=== PATIENT | female | born 1975 | race African-American/Black ===

== ENCOUNTER 2016-11-02 19:21 | Emergency (ER) | payer MEDICAID, OTHER ==
[~2016-11-02] VITALS: Ht 180.3 cm; Wt 146.4 kg
[~2016-11-02 19:21] MED LIST: BENZ2TAB58 PO; FLUO-191 PO; HALO5TAB23 PO; QUET100T PO
[2016-11-02 20:30] LABS: BASOPHILS % (AUTO) 2.2 % (0.0-2.0); EOSINOPHILS % (AUTO) 2.6 % (1.0-6.0); HEMOGLOBIN 10.9 g/dL (12.0-16.0); LYMPHOCYTES # (AUTO) 2.9 K/uL (1.0-4.8); LYMPHOCYTES % (AUTO) 38.6 % (22.0-44.0); MEAN CORPUSCULAR HEMOGLOBIN 22.6 pg (26.0-34.0); MEAN CORPUSCULAR HGB CONC 31.2 G/dL (31.0-37.0); MEAN CORPUSCULAR VOLUME 73 fL (80-100); MONOCYTES # (AUTO) 0.5 K/uL (0.1-1.0); MONOCYTES % (AUTO) 5.9 % (2.0-9.0); NEUTROPHILS # (AUTO) 3.8 K/uL (1.8-7.7); NEUTROPHILS % (AUTO) 50.7 % (40.0-70.0); PLATELET COUNT (AUTO) 387 K/uL (150-450); RED BLOOD CELL COUNT(AUTO) 4.82 MIL/uL (4.00-5.20); RED CELL DISTRIBUTION WIDTH 16.9 % (11.5-14.5); WHITE BLOOD COUNT (AUTO) 7.6 K/uL (4.5-11.0)
[2016-11-02 20:38] LABS: ANION GAP 6 mmol/L (8-16); CALCIUM, TOTAL 8.2 mg/dL (8.8-10.5); CARBON DIOXIDE 29 mmol/L (22-29); CHLORIDE 106 mmol/L (98-107); CREATININE 0.83 mg/dL (0.60-1.30); GLOMERULAR FILTR. RATE CALC > 60 mL/min (>60); POTASSIUM 4.2 mmol/L (3.5-5.1); SODIUM SERUM 141 mmol/L (136-145); UREA NITROGEN, BLOOD 10 mg/dL (7-18)
[2016-11-02 20:44] LABS: ALANINE AMINOTRANSFERASE 20 U/L (12-78); ALBUMIN 3.2 g/dL (3.4-5.0); ASPARTATE AMINOTRANSFERASE 21 U/L (15-37); BILIRUBIN,TOTAL 0.3 mg/dL (0.1-1.0); TOTAL PROTEIN, SERUM 7.9 g/dL (6.4-8.2)
[2016-11-02 20:45] LABS: RBC MORPHOLOGY COMMENT ABNORMAL RBC MORPH
[2016-11-02 21:44] LABS: APPEARANCE,URINE CLOUDY (CLEAR); GLUCOSE, URINE (UA) NEGATIVE (NEGATIVE); KETONES,URINE NEGATIVE (NEGATIVE); LEUKOCYTE ESTERASE ,URINE SMALL (NEGATIVE); OCCULT BLOOD,URINE LARGE (NEGATIVE); PROTEIN,URINE POS 1+ (NEGATIVE)
[2016-11-02 21:50] LABS: ADD UA MICROSCOPIC YES
[2016-11-02 22:11] LABS: RBC,URINE Full Field /HPF (0-2); SQUAMOUS EPITHELIAL CELL,UR Few /LPF (None Seen)
[2016-11-02 22:29] VITALS: BP 134/75
== END 2016-11-02 22:35 | disposition home or self-care (01) ==
LOC: EMS 19:23
DX: N93.8 Other specified abnormal uterine and vaginal bleeding (principal); D25.9 Leiomyoma of uterus, unspecified; F17.210 Nicotine dependence, cigarettes, uncomplicated; Z88.6 Allergy status to analgesic agent
CPT/HCPCS: 99284; 99406

== ENCOUNTER 2019-05-17 01:36 | Emergency (ER) | payer MEDICAID, OTHER ==
[~2019-05-17] VITALS: Ht 180.3 cm; Wt 104.5 kg
[2019-05-17] MEDS ORDERED: CARI350T26 PO (02:27)
[2019-05-17 03:59] VITALS: BP 112/55
[2019-05-17] MEDS ORDERED: GABAPENTIN 100 MG CAPSULE PO ONE (04:00)
== END 2019-05-17 04:00 | disposition home or self-care (01) ==
LOC: EMS 01:38
DX: M19.071 Primary osteoarthritis, right ankle and foot (principal); M19.072 Primary osteoarthritis, left ankle and foot; Z79.899 Other long term (current) drug therapy; Z88.6 Allergy status to analgesic agent

== ENCOUNTER 2025-07-09 20:33 | Emergency (ER) | payer OTHER ==
[~2025-07-09] VITALS: Ht 182.9 cm; Wt 96.4 kg
[~2025-07-09 20:33] MED LIST changes: +CARI-493 PO; +FLUO-177 PO; -FLUO-191 PO
[2025-07-09 21:52] LABS: COVID AG,FIA SOURCE NASAL SWAB
[2025-07-09 21:55] VITALS: BP 140/95; PULSE 92; RESP 14; TEMP 97.7; O2SAT 96
[2025-07-09 22:24] LABS: CALCIUM, TOTAL 9.4 mg/dL (8.8-10.5); CREATININE 0.70 mg/dL (0.60-1.30); GLOMERULAR FILTR. RATE CALC > 60 mL/min (>60); GLUCOSE,RANDOM 75 mg/dL (70-110); SODIUM SERUM 140 mmol/L (136-145); UREA NITROGEN, BLOOD 23 mg/dL (7-18)
[2025-07-09 22:25] LABS: PLATELET COUNT (AUTO) 252 K/uL (150-450); RED BLOOD CELL COUNT(AUTO) 4.87 MIL/uL (4.00-5.20); RED CELL DISTRIBUTION WIDTH 16.4 % (11.5-14.5); WHITE BLOOD COUNT (AUTO) 3.8 K/uL (4.5-11.0)
[2025-07-09 22:44] LABS: SARS-COV2 (COVID) ANTIGEN,FIA Negative (Negative)
[2025-07-12] MEDS ORDERED: APIX5TAB PO (13:21)
[2025-07-12] MEDS ORDERED: ALBU18HF12 IH (13:21)
[2025-07-12] MEDS ORDERED: BACL10TA PO (13:21)
[2025-07-12] MEDS ORDERED: LOSA-382 PO (13:22)
[2025-07-12] MEDS ORDERED: LORA1TAB25 PO (13:22)
[2025-07-12] MEDS ORDERED: MELO-107 PO (13:22)
[2025-07-12] MEDS ORDERED: OXYB5TAB20 PO (13:22)
[2025-07-12] MEDS ORDERED: DICL100G60 TP (13:22)
[2025-07-12] MEDS ORDERED: HALO1TAB19 PO (13:22)
[2025-07-12] MEDS ORDERED: [UNRECOGNIZED DRUG - CODE] PO (13:22)
[2025-07-12] MEDS ORDERED: TOPI-257 PO (13:22)
[2025-07-12] MEDS ORDERED: QUET25TA PO (13:22)
[2025-07-12] MEDS ORDERED: LEVE250T81 PO (13:22)
[2025-07-14] MEDS ORDERED: HALO2ORA3 PO (15:40)
[2025-07-14] MEDS ORDERED: LEVE250T81 PO (15:40)
[2025-07-14] MEDS ORDERED: MELA5TAB40 PO (15:40)
[2025-07-14] MEDS ORDERED: GABA-1181 PO (15:40)
[2025-07-14] MEDS ORDERED: DULO30CA62 PO (15:40)
[2025-07-14] MEDS ORDERED: DIVA-153 PO (15:40)
== END 2025-07-10 00:25 | disposition home or self-care (01) ==
LOC: EMS 20:40
DX: R45.1 Restlessness and agitation (principal); F20.9 Schizophrenia, unspecified; F31.9 Bipolar disorder, unspecified; G89.29 Other chronic pain; F17.210 Nicotine dependence, cigarettes, uncomplicated; Z20.822 Contact with and (suspected) exposure to COVID-19; Z79.899 Other long term (current) drug therapy; Z88.6 Allergy status to analgesic agent
CPT/HCPCS: 99283; 87426; 80048; 85025; 36415; G0480

== ENCOUNTER 2025-07-19 21:36 | Emergency (ER) | payer MEDICAID, OTHER ==
[~2025-07-19] VITALS: Ht 182.9 cm; Wt 96.8 kg
[~2025-07-19 21:36] MED LIST changes: +ALBU18HF12 IH; +APIX5TAB PO; +BACL10TA PO; -BENZ2TAB58 PO; -CARI-493 PO; +DICL100G60 TP; +DIVA-153 PO; +DULO30CA62 PO; -FLUO-177 PO; +GABA-1181 PO; +HALO1TAB19 PO; +HALO2ORA3 PO; -HALO5TAB23 PO; +LEVE250T81 PO; +LORA1TAB25 PO; +LOSA-382 PO; +MELA5TAB40 PO; +MELO-107 PO; +OXYB5TAB20 PO; +QUET25TA PO; +TOPI-257 PO; +[UNRECOGNIZED DRUG - CODE] PO
[2025-07-19 21:37] VITALS: TEMP 98.4
[2025-07-19 22:37] LABS: PLATELET COUNT (AUTO) 208 K/uL (150-450); RED BLOOD CELL COUNT(AUTO) 4.66 MIL/uL (4.00-5.20); RED CELL DISTRIBUTION WIDTH 15.4 % (11.5-14.5); WHITE BLOOD COUNT (AUTO) 3.6 K/uL (4.5-11.0)
[2025-07-19 22:46] LABS: CALCIUM, TOTAL 9.0 mg/dL (8.8-10.5); CREATININE 0.56 mg/dL (0.60-1.30); GLOMERULAR FILTR. RATE CALC > 60 mL/min (>60); GLUCOSE,RANDOM 100 mg/dL (70-110); SODIUM SERUM 139 mmol/L (136-145); UREA NITROGEN, BLOOD 25 mg/dL (7-18)
[2025-07-19 22:54] LABS: ALCOHOL, BLOOD (SERUM) < 3 mg/dL (0-10)
[2025-07-20 02:38] VITALS: BP 144/91; PULSE 78; RESP 17; O2SAT 98
[2025-07-22] MEDS ORDERED: DIVA-153 PO (12:13)
[2025-07-22] MEDS ORDERED: DULO60CA73 PO (12:14)
[2025-07-22] MEDS ORDERED: LEVE750T4 PO (12:14)
[2025-07-22] MEDS ORDERED: ATOM10CA4 PO (12:16)
[2025-07-22] MEDS ORDERED: HALO10TA21 PO (12:17)
[2025-07-22] MEDS ORDERED: GABA-1201 PO (12:18)
[2025-07-22] MEDS ORDERED: LOSA-381 PO (12:19)
[2025-07-22] MEDS ORDERED: CARV12 PO (12:20)
== END 2025-07-20 03:50 | disposition home or self-care (01) ==
LOC: EMS 21:36
DX: F25.9 Schizoaffective disorder, unspecified (principal); F31.9 Bipolar disorder, unspecified; I10 Essential (primary) hypertension; J44.9 Chronic obstructive pulmonary disease, unspecified; G89.29 Other chronic pain; F17.210 Nicotine dependence, cigarettes, uncomplicated; Z98.890 Other specified postprocedural states; Z79.01 Long term (current) use of anticoagulants; Z79.899 Other long term (current) drug therapy; Z79.1 Long term (current) use of non-steroidal anti-inflammatories (NSAID); Z88.6 Allergy status to analgesic agent
CPT/HCPCS: 99284; 80048; 85025; 36415; 93005; G0480; G0481

== ENCOUNTER 2025-08-06 19:55 | Emergency (ER) | payer MEDICAID, OTHER ==
[~2025-08-06] VITALS: Ht 182.9 cm; Wt 100.0 kg
[~2025-08-06 19:55] MED LIST changes: -ALBU18HF12 IH; +ATOM10CA4 PO; -BACL10TA PO; +CARV12 PO; +DULO60CA73 PO; +GABA-1201 PO; +HALO10TA21 PO; -HALO1TAB19 PO; +LEVE750T4 PO; -LORA1TAB25 PO; +LOSA-381 PO; -LOSA-382 PO; -MELO-107 PO; -QUET100T PO; -QUET25TA PO; -TOPI-257 PO; -[UNRECOGNIZED DRUG - CODE] PO
[2025-08-06 21:55] VITALS: BP 115/59; PULSE 66; RESP 18; TEMP 98.2; O2SAT 100
[2025-08-07] MEDS: HYDROCODONE/ACETAMINOPHEN 5-325 MG TABLET PO ONE (00:06)
[2025-08-11] MEDS ORDERED: NALT50TA6 PO (16:24)
== END 2025-08-07 03:41 | disposition home or self-care (01) ==
LOC: EMS 19:55
DX: G89.29 Other chronic pain (principal); M25.551 Pain in right hip; F25.9 Schizoaffective disorder, unspecified; F31.9 Bipolar disorder, unspecified; I10 Essential (primary) hypertension; J44.9 Chronic obstructive pulmonary disease, unspecified; F17.210 Nicotine dependence, cigarettes, uncomplicated; Z79.01 Long term (current) use of anticoagulants; Z79.899 Other long term (current) drug therapy; Z88.6 Allergy status to analgesic agent
CPT/HCPCS: 99283